=== PATIENT | male | born 1945 | race Hispanic/Latino ===

== ENCOUNTER 2017-09-02 08:42 | Day surgery (SDC) | payer MEDICARE, BC ==
[2017-09-02 09:17] VITALS: BMI 25.3
[2017-09-02] MEDS ORDERED: Propofol 10 mg/ml Inj (20 ML) ONE (10:36)
--- NOTE | 2017-09-02 10:48 | CP.SDSHP ---
Same Day Surgery H & P - History Proposed Procedure: EGD Pre-Op Diagnosis: SEE NOTES - Previous Medical/Surgical History Misc: Other Pain: 4.Moderate Pain - Allergies Allergies: Allergies No Known Allergies Allergy (Verified 09/02/17 09:11) - Physical Exam General Appearance: N Vital Signs: Vital Signs 09/02/17 09:00 Temperature 99.1 F Pulse Rate 104 H Respiratory 20 Rate Blood Pressure 164/93 H O2 Sat by Pulse 100 Oximetry Mental Status: Alert & Oriented x3 Neuro: WNL Heart: WNL Lungs: WNL GI: Other - {Optional Preform as Required} Breast: WNL Abdomen: Other Rectal: Other Integument: WNL TRAY PACKER: Other : WNL Ortho: WNL ENT: WNL - Impression Pt. Evaluated Today:Candidate for Anesthesia & Procedure: Yes - Date & Time Time: 10:48 Short Stay Discharge - Short Stay Discharge Admitting Diagnosis/Reason for Visit: DYSPEPSIA Disposition: HOME/ ROUTINE
[2017-09-02] MEDS ORDERED: Pantoprazole 40 mg EC Tab PO STA (10:58)
[2017-09-02] MEDS ORDERED: Belladonna-Phenobarbital PO STA (10:58)
[2017-09-02 11:24] VITALS: TEMP 97.5
[2017-09-02 12:25] VITALS: RESP 20
[2017-09-02 12:27] VITALS: BP 116/76; PULSE 88; O2SAT 97
== END 2017-09-02 12:20 | disposition home or self-care (01) ==
LOC: C.ENDO 08:42
PROVIDERS: ATTEND Specialist
DX: K30 Functional dyspepsia (principal); K20.9 Esophagitis, unspecified; I86.4 Gastric varices; K29.70 Gastritis, unspecified, without bleeding
CPT/HCPCS: 43239; 88305; J2704